=== PATIENT | male | born 1960 | race Caucasian/White ===

== ENCOUNTER → 2018-02-19 | Outpatient (CLI) | payer BC ==
[~2018-02-19] MED LIST: FLUT16H NASAL; FOLI1TAB15 PO; INFL100I INJ; METH2.5T6 PO; MUCINEX PO
== END | disposition home or self-care (01) ==
LOC: RAH 15:18
PROVIDERS: ATTEND Internal Medicine
DX: S83.232A Complex tear of medial meniscus, current injury, left knee, initial encounter (principal); S83.282A Other tear of lateral meniscus, current injury, left knee, initial encounter; M17.12 Unilateral primary osteoarthritis, left knee; M25.462 Effusion, left knee; M85.48 Solitary bone cyst, other site; E78.5 Hyperlipidemia, unspecified; X58.XXXA Exposure to other specified factors, initial encounter; Y93.89 Activity, other specified; Y92.89 Other specified places as the place of occurrence of the external cause; Y99.8 Other external cause status
CPT/HCPCS: 73721

== ENCOUNTER → 2018-10-05 | Outpatient (CLI) | payer BC | END | disposition home or self-care (01) | LOC: RAH 12:12 | PROVIDERS: ATTEND Otolaryngology Plastic Surgery within the Head & Neck | DX: E04.2 Nontoxic multinodular goiter (principal) | CPT/HCPCS: 76536 ==